=== PATIENT | male | born 1950 | race Caucasian/White ===

== ENCOUNTER → 2017-04-06 | Outpatient (CLI) | payer MEDICARE, OTHER ==
[~2017-04-06] MED LIST: ACULAR10 ML OU; ERYTHROMYCIN O3.5 G1 OD; GLUCOPHAGE500 MG PO; GLUCOTROL PO; LISINOPRIL-HCTZ1 T15; LISINOPRIL-HCTZ1 T15 PO; LISINOPRIL20 MG PO
--- NOTE | ~2017-04-06 | US77 ---
[facility] A Service of [facility] & [facility] RADIOLOGY TEXT RESULTS PATIENT: OFELIA SOLIS LOCATION: CGUS : 48 UNIT #: [id number] AGE: [address]: Andrea Galvez MD SEX: M ORDER DR: [id number] [facility] [address] [place], [place] [address] [id number] O MR#: [id number] Acc #: [id number] NAME: OFELIA SOLIS : 1950 SEX: M STUDY DATE/TIME: 04/06/2017 12:47 UNIT: [facility] ROOM: STUDY DESCRIPTION: US Kidney Bilateral Complete Attending Physician: Andrea Galvez Jr., M.D. Referring Physician: Andrea Galvez Jr., M.D. Ordering Physician: Andrea Galvez Jr., M.D. Primary Care Physician: Shoshana Gary M.D. MEDICAL IMAGING REPORT This report is preliminary unless electronic signature is present EXAM Renal ultrasound 04/06/2017 HISTORY Chronic kidney disease stage II, type 2 diabetes. Benign essential hypertension FINDINGS The right kidney measures 12.1 cm while the left kidney measures 11.9 cm in longitudinal dimensions. There is no evidence of hydronephrosis or nephrolithiasis. No cystic or solid mass lesions were seen on either kidney. There is normal renal cortical echogenicity. Images of the bladder are normal. IMPRESSION 1. Negative renal ultrasound. 2. Images of the bladder are normal. Dictated by... Tony Harvey M.D. THIS IS AN ELECTRONICALLY VERIFIED REPORT Tony Harvey M.D. at 04/07/2017 5:35 PM Derian TD: 04/07/2017 12:50 JOB #: [id number] MEDICAL IMAGING REPORT Page 1 of 1 COPY
== END | disposition home or self-care (01) ==
LOC: CGUS 12:10
DX: E11.22 Type 2 diabetes mellitus with diabetic chronic kidney disease (principal); I12.9 Hypertensive chronic kidney disease with stage 1 through stage 4 chronic kidney disease, or unspecified chronic kidney disease; N18.3 Chronic kidney disease, stage 3 (moderate)
CPT/HCPCS: 76770